=== PATIENT | female | born 1940 | race Caucasian/White ===

== ENCOUNTER → 2017-07-29 | Outpatient (CLI) | payer MEDICARE ==
--- NOTE | 2017-07-29 12:35 | PCVCIMAG ---
APPROVED REPORT Exam: Stress Echocardiogram Indication: CAD, Hyperlipidemia. Patient Location: Echo lab Stress Nurse: Tasia Nava RN Status: routine Ht: 5 ft 0 in HR: 83 bpm BP: 110/70 mmHg Rhythm: NSR Procedure The patient underwent an Exercise Stress Test using the Francisco J Protocol. Blood pressure, heart rate, and EKG were monitored. An Echocardiogram was performed by mechanical technician in four stages in quad fashion. At peak stress, four selected images were obtained and placed side by side with resting images for comparison. Stress Test Details Stress Test: Exercise stress testing was performed using a Francisco J protocol. HR Resting HR: 83 bpmMax Heart Rate (APMHR): 143 bpm Max HR Achieved: 137 bpmTarget HR (85% APMHR): 121 bpm % of APMHR: 95 HR response to stress: Normal HR response to stress BP Resting BP: 110/70 mmHg Max BP: 158/70 mmHg ECG Resting ECG: Sinus Rhythm Stress ECG: Sinus Rhythm Clinical Reason for Termination: Maximal effort Exercise duration: 6 min sec Highest Stage Achieved: Stage 2: 2.5 mph at 12% grade. Exercise capacity: 7.00 METs Overall Exercise Capacity for Age: Normal Pre-Stress Echo The resting Echocardiogram showed normal left ventricular contractility with an estimated Ejection Fraction of about 55-60%. Normal wall motion in all segments on baseline images. Post-Stress Echo The stress Echocardiogram showed normal left ventricular contractility with an estimated Ejection Fraction of about 60-65%. Normal augmentation of wall motion in all segments on post stress images. Clinical No clinical or ECG evidence for ischemia. Conclusion Clinical Response: Non-ischemic Exercise Capacity: Average Stress ECG Response: Non-ischemic Stress Echo Images: Non-ischemic Other Information Study Quality: Technically Limited
== END | disposition home or self-care (01) ==
LOC: PCVCIMAG 09:52
PROVIDERS: ATTEND Internal Medicine Cardiovascular Disease
DX: I25.10 Atherosclerotic heart disease of native coronary artery without angina pectoris (principal); I10 Essential (primary) hypertension; E78.5 Hyperlipidemia, unspecified
CPT/HCPCS: 80061; 93325; 93351

== ENCOUNTER → 2018-06-23 | Outpatient (CLI) | payer MEDICARE | END | disposition home or self-care (01) | LOC: PCVCCLINIC 14:40 | PROVIDERS: ATTEND Internal Medicine Cardiovascular Disease | DX: I25.10 Atherosclerotic heart disease of native coronary artery without angina pectoris (principal); I10 Essential (primary) hypertension; E78.00 Pure hypercholesterolemia, unspecified; R25.2 Cramp and spasm; Z79.899 Other long term (current) drug therapy; Z79.82 Long term (current) use of aspirin | CPT/HCPCS: 80061; 93005; G0463 ==

== ENCOUNTER → 2018-10-25 | Outpatient (CLI) | payer MEDICARE ==
--- NOTE | 2018-10-25 12:45 | PCVCIMAG ---
APPROVED REPORT Study performed: 10/25/2018 10:51:23 Exam: Stress Echocardiogram Indication: CAD , Hypertension, Hyperlipidemia Patient Location: Echo lab Stress Nurse: Sheila Thayer RN Status: routine Ht: 5 ft 0 in HR: 76 bpm BP: 130/80 mmHg Rhythm: NSR Procedure The patient underwent an Exercise Stress Test using the Francisco J Protocol. Blood pressure, heart rate, and EKG were monitored. An Echocardiogram was performed by pet care technician in four stages in quad fashion. At peak stress, four selected images were obtained and placed side by side with resting images for comparison. Stress Test Details Stress Test: Exercise stress testing was performed using a Francisco J protocol. HR Resting HR: 76 bpmMax Heart Rate (APMHR): 142 bpm Max HR Achieved: 139 bpmTarget HR (85% APMHR): 120 bpm % of APMHR: 97 Recovery HR: 87 bpm HR response to stress: Normal HR response to stress BP Resting BP: 130/80 mmHg Max BP: 168/80 mmHg Recovery BP: 156/70 mmHg BP response to stress: Normal blood pressure response to stress. ECG Resting ECG: Sinus Rhythm Stress ECG: Sinus Rhythm ST Change: Normal Arrhythmia: occasional PACs or isolated PVC Recovery ECG: Sinus Rhythm Recovery ST Change: Normal Recovery Arrhythmia: None Clinical Reason for Termination: Dyspnea, Maximal effort Stress Symptoms: Dyspnea Exercise duration: 6 min 18 sec Highest Stage Achieved: Stage 3: 3.4 mph at 14% grade. Exercise capacity: 7.8 METs Overall Exercise Capacity for Age: Normal Scale: Sedentary Angina Score: None Pre-Stress Echo The resting Echocardiogram showed normal left ventricular contractility with an estimated Ejection Fraction of about >55%. Normal wall motion in all segments on baseline images. Post-Stress Echo The stress Echocardiogram showed normal left ventricular contractility with an estimated Ejection Fraction of about 60-65%. Normal augmentation of wall motion in all segments on post stress images. Clinical No clinical or ECG evidence for ischemia. Conclusion Clinical Response: Non-ischemic Exercise Capacity: Average Stress ECG Response: Non-ischemic Stress Echo Images: Non-ischemic The left ventricle is normal in size and wall thickness in both the rest and stress images. Other Information Study Quality: Adequate <Conclusion> The left ventricle is normal in size and wall thickness in both the rest and stress images.
== END | disposition home or self-care (01) ==
LOC: PCVCIMAG 10:47
PROVIDERS: ATTEND Internal Medicine Cardiovascular Disease
DX: I25.10 Atherosclerotic heart disease of native coronary artery without angina pectoris (principal); I10 Essential (primary) hypertension; E78.00 Pure hypercholesterolemia, unspecified; E78.5 Hyperlipidemia, unspecified
CPT/HCPCS: 93325; 93351

== ENCOUNTER → 2019-07-06 | Outpatient (CLI) | payer MEDICARE | END | disposition home or self-care (01) | LOC: PCVCCLINIC 10:00 | PROVIDERS: ATTEND Internal Medicine Cardiovascular Disease | DX: I25.10 Atherosclerotic heart disease of native coronary artery without angina pectoris (principal); E78.00 Pure hypercholesterolemia, unspecified; I10 Essential (primary) hypertension; I82.90 Acute embolism and thrombosis of unspecified vein; R53.83 Other fatigue; Z78.9 Other specified health status | CPT/HCPCS: 36415; 80061; 93005; G0463 ==

== ENCOUNTER → 2019-10-19 | Outpatient (CLI) | payer MEDICARE ==
--- NOTE | 2019-10-19 12:37 | PCVCIMAG ---
APPROVED REPORT Study performed: 10/19/2019 11:06:06 Exam: Stress Echocardiogram Indication: Hyperlipidemia, Hypertension Patient Location: Echo lab Stress Nurse: Sheila Thayer RN Status: routine Ht: 5 ft 0 in HR: 84 bpm BP: 140/80 mmHg Rhythm: NSR Procedure The patient underwent an Exercise Stress Test using the Francisco J Protocol. Blood pressure, heart rate, and EKG were monitored. An Echocardiogram was performed by heavy equipment technician in four stages in quad fashion. At peak stress, four selected images were obtained and placed side by side with resting images for comparison. Stress Test Details Stress Test: Exercise stress testing was performed using a Francisco J protocol. HR Resting HR: 84 bpmMax Heart Rate (APMHR): 141 bpm Max HR Achieved: 136 bpmTarget HR (85% APMHR): 119 bpm % of APMHR: 96 Recovery HR: 90 bpm HR response to stress: Normal HR response to stress BP Resting BP: 140/80 mmHg Max BP: 140/80 mmHg BP response to stress: Normal blood pressure response to stress. ECG Resting ECG: Sinus Rhythm Stress ECG: Sinus Rhythm Recovery ECG: Sinus Rhythm Clinical Reason for Termination: Maximal effort Exercise duration: 6 min 19 sec Highest Stage Achieved: Stage 2: 2.5 mph at 12% grade. Exercise capacity: 7.90 METs Overall Exercise Capacity for Age: Normal Pre-Stress Echo The resting Echocardiogram showed normal left ventricular contractility with an estimated Ejection Fraction of about 55-60%. Normal wall motion in all segments on baseline images. Post-Stress Echo The stress Echocardiogram showed normal left ventricular contractility with an estimated Ejection Fraction of about 60-65%. Normal augmentation of wall motion in all segments on post stress images. Conclusion Clinical Response: Non-ischemic Exercise Capacity: Average Stress ECG Response: Non-ischemic Stress Echo Images: Non-ischemic The left ventricle is normal in size and wall thickness in both the rest and stress images. Trace Tricuspid regurgitation. Pulmonary artery pressure 30mmHg. Other Information Study Quality: Technically Difficult <Conclusion> The left ventricle is normal in size and wall thickness in both the rest and stress images. Trace Tricuspid regurgitation. Pulmonary artery pressure 30mmHg.
== END | disposition home or self-care (01) ==
LOC: PCVCIMAG 10:40
PROVIDERS: ATTEND Internal Medicine Cardiovascular Disease
DX: I25.10 Atherosclerotic heart disease of native coronary artery without angina pectoris (principal); E78.00 Pure hypercholesterolemia, unspecified; I10 Essential (primary) hypertension; R53.83 Other fatigue
CPT/HCPCS: 93325; 93351